=== PATIENT | male | born 1970 | race Caucasian/White ===

== ENCOUNTER 2019-03-27 15:30 | Outpatient (REF) | payer BC, SELFPAY ==
[2019-03-27 21:58] LABS: Abs Immature Grans 0.01 k/cumm (0.0-0.09); Absolute Basophil Count 0.04 k/cumm (0.0-0.2); Absolute Eosinophil Count 0.11 k/cumm (0.0-0.7); Absolute Lymphocyte Count 1.54 k/cumm (1.2-3.4); Absolute Monocyte Count 0.53 k/cumm (0.11-0.7); Absolute Neutrophil Count 6.59 k/cumm (1.2-6.7); Basophils % 0.5; Eosinophils % 1.2; HCT 45.8 % (40.0-50.0); Immature Grans % 0.1; Lymphocytes % 17.5; Mean Corp. HGB Concentration 32.8 g/dL (32.0-36.0); Mean Corpuscular Volume 91.6 fL (80-95); Mean Platelet Volume 12.6 fL (8.0-11.0); Neutrophils % 74.7; Platelet Count 286 x1000/uL (130-400); RBC Distribution Width 13.5 % (11.8-14.1); White Blood Cell Count 8.82 k/cumm (4.4-10.8)
[2019-03-27 22:07] LABS: ALT 28 U/L (16-63); AST 17 U/L (15-37); Albumin 4.3 g/dL (3.4-5.0); Alkaline Phosphatase 109 U/L (46-116); Anion Gap 10.1 mmol/L (3-11); BUN 17 mg/dL (7-18); Bilirubin, Total 0.4 mg/dL (0.2-1.0); C-Reactive Protein 0.13 mg/dL (0.0-0.3); CO2 29.9 mmol/L (21.0-32.0); CREATININE 0.93 mg/dL (0.70-1.30); Calcium 9.7 mg/dL (8.5-10.1); Chloride 102 mmol/L (98-107); Glucose 89 mg/dL (70-100); Sodium 142 mmol/L (136-145); Total Protein 7.7 g/dL (6.4-8.2)
[2019-03-27 22:37] LABS: ESR 8 mm/hr (0-15)
[2019-03-29 10:16] LABS: Lyme Ab w Rflx to Lyme Confirm Negative
[2019-03-30 22:27] LABS: Anaplasma phagocytophilum Negative (Negative); B. miyamotoi PCR Negative (Negative); Babesia divergens/MO-1 Negative (Negative); Babesia duncani Negative (Negative); Babesia microti Negative (Negative); Ehrlichia chaffeensis Negative (Negative); Ehrlichia ewingii/canis Negative (Negative); Ehrlichia muris eauclairensis Negative (Negative)
== END 2019-03-27 15:50 ==
LOC: NCHCN 15:30
PROVIDERS: PCP Registered Nurse; Visit Provider Registered Nurse
DX: R51 Headache (principal); R11.2 Nausea with vomiting, unspecified; R50.9 Fever, unspecified; R29.810 Facial weakness
CPT/HCPCS: 80053; 85652; 87798; 85025; 86140; 86618

== ENCOUNTER 2020-05-17 16:46 | Outpatient (REF) | payer BC, SELFPAY ==
[2020-05-17 21:41] LABS: Anion Gap 5.7 mmol/L (3-11); BUN 17 mg/dL (7-18); CO2 30.3 mmol/L (21.0-32.0); CREATININE 0.98 mg/dL (0.70-1.30); Calcium 8.7 mg/dL (8.5-10.1); Calculated LDL 99 mg/dL (<100); Chloride 106 mmol/L (98-107); Cholesterol 179 mg/dL (<200); Glucose 67 mg/dL (74-106); HDL Cholesterol 39 mg/dL (40-60); Potassium 4.1 mmol/L (3.5-5.1); Sodium 142 mmol/L (136-145); Triglyceride 205 mg/dL (<150)
== END 2020-05-17 17:06 ==
LOC: NCHCN 16:46
PROVIDERS: PCP Registered Nurse; Visit Provider Registered Nurse
DX: Z00.00 Encounter for general adult medical examination without abnormal findings (principal); I10 Essential (primary) hypertension
CPT/HCPCS: 80048; 80061

== ENCOUNTER 2020-08-15 10:16 | Outpatient (REF) | payer BC, SELFPAY ==
[2020-08-15 13:52] LABS: TSH (W/Ref FT4) 0.93 uIU/mL (0.36-3.74)
[2020-08-15 14:19] LABS: Hemoglobin A1C 5.6 % (<5.7)
== END 2020-08-15 10:17 | disposition home or self-care (01) ==
LOC: NCHCN 10:16
PROVIDERS: PCP Registered Nurse; Visit Provider Registered Nurse
DX: Z00.00 Encounter for general adult medical examination without abnormal findings (principal); I10 Essential (primary) hypertension; F41.8 Other specified anxiety disorders
CPT/HCPCS: 83036; 84443

== ENCOUNTER 2021-07-09 21:10 | Outpatient (REF) | payer BC, SELFPAY ==
[2021-07-09 21:27] LABS: BUN 21 mg/dL (7-18); CREATININE 0.8 mg/dL (0.70-1.30); Calcium 8.7 mg/dL (8.5-10.1); Chloride 105 mmol/L (98-107); Glucose 78 mg/dL (74-106); Potassium 4.4 mmol/L (3.5-5.1); Sodium 141 mmol/L (136-145)
[2021-07-09 21:33] LABS: Hemoglobin A1C 5.5 % (<5.7)
[2021-07-10 00:08] LABS: Vitamin D 25 Total 18.7 ng/mL (30-100)
== END 2021-07-09 21:11 | disposition home or self-care (01) ==
LOC: NCHCN 21:10
PROVIDERS: PCP Registered Nurse; Visit Provider Registered Nurse
DX: I10 Essential (primary) hypertension (principal); Z13.1 Encounter for screening for diabetes mellitus; Z13.21 Encounter for screening for nutritional disorder
CPT/HCPCS: 80048; 82306; 83036

== ENCOUNTER 2021-09-04 18:31 | Outpatient (REF) | payer BC, SELFPAY ==
[2021-09-04 16:31] LABS: Vitamin D 25 Total 41.6 ng/mL (30-100)
== END 2021-09-04 18:32 | disposition home or self-care (01) ==
LOC: NCHCN 18:31
PROVIDERS: PCP Registered Nurse; Visit Provider Registered Nurse
DX: E55.9 Vitamin D deficiency, unspecified (principal)
CPT/HCPCS: 82306

== ENCOUNTER 2022-04-29 15:27 | Outpatient (REF) | payer BC, SELFPAY ==
[2022-05-01 09:07] LABS: DHEA Sulfate 71 ug/dL (136-448)
== END 2022-04-29 15:28 | disposition home or self-care (01) ==
LOC: NCHCN 15:27
PROVIDERS: PCP Registered Nurse; Visit Provider Registered Nurse
DX: D35.00 Benign neoplasm of unspecified adrenal gland (principal)
CPT/HCPCS: 82533; 82627

== ENCOUNTER 2022-07-08 13:59 | Outpatient (REF) | payer BC, SELFPAY ==
[2022-07-08 21:48] LABS: ALT 30 U/L (16-63); AST 25 U/L (15-37); Albumin 3.6 g/dL (3.4-5.0); Alkaline Phosphatase 149 U/L (46-116); Anion Gap 5.2 mmol/L (3-11); BUN 20 mg/dL (7-18); Bilirubin, Total 0.2 mg/dL (0.2-1.0); CO2 30.8 mmol/L (21.0-32.0); CREATININE 0.9 mg/dL (0.70-1.30); Calcium 9.1 mg/dL (8.5-10.1); Calculated LDL 118 mg/dL (<100); Chloride 104 mmol/L (98-107); Cholesterol 238 mg/dL (<200); Estimated GFR 102.12 (mL/min/1.73m2); Glucose 102 mg/dL (74-106); HDL Cholesterol 47 mg/dL (40-60); Sodium 140 mmol/L (136-145); Total Protein 7.2 g/dL (6.4-8.2); Triglyceride 369 mg/dL (<150)
[2022-07-08 22:17] LABS: Hemoglobin A1C 5.6 % (<5.7)
== END 2022-07-08 14:00 | disposition home or self-care (01) ==
LOC: NCHCN 13:59
PROVIDERS: PCP Registered Nurse; Visit Provider Registered Nurse
DX: I10 Essential (primary) hypertension (principal); E66.8 Other obesity; Z13.1 Encounter for screening for diabetes mellitus
CPT/HCPCS: 80053; 80061; 83036

== ENCOUNTER 2024-08-07 15:23 | Outpatient (REF) | payer BC, SELFPAY ==
[2024-08-07 15:50] LABS: ALT 19 U/L (16-63); AST 22 U/L (15-37); Albumin 3.4 g/dL (3.4-5.0); Alkaline Phosphatase 147 U/L (46-116); BUN 20 mg/dL (7-18); Bilirubin, Total 0.3 mg/dL (0.2-1.0); CREATININE 0.9 mg/dL (0.70-1.30); Calcium 8.7 mg/dL (8.5-10.1); Calculated LDL 63 mg/dL (<100); Chloride 107 mmol/L (98-107); Cholesterol 155 mg/dL (<200); Estimated GFR 100.86 (mL/min/1.73m2); Glucose 75 mg/dL (74-106); HDL Cholesterol 59 mg/dL (>or=40); Sodium 143 mmol/L (136-145); Total Protein 6.8 g/dL (6.4-8.2); Triglyceride 166 mg/dL (<150)
[2024-08-07 15:51] LABS: Hemoglobin A1C 5.8 % (<5.7)
[2024-08-07 22:25] LABS: PSA, Screening 0.5 ng/mL (<=3.5)
== END 2024-08-07 15:24 | disposition home or self-care (01) ==
LOC: NCHCN 15:23
PROVIDERS: PCP Registered Nurse; Visit Provider Family Medicine
DX: R73.03 Prediabetes (principal); E78.5 Hyperlipidemia, unspecified; Z12.5 Encounter for screening for malignant neoplasm of prostate; I10 Essential (primary) hypertension
CPT/HCPCS: 80053; 80061; 84153; 83036